=== PATIENT | male | born 1995 | race Caucasian/White ===

== ENCOUNTER 2020-07-31 12:21 | Outpatient (REF) | payer MEDICAID, SELFPAY ==
[2020-08-01 12:53] LABS: COVID-19 RT-PCR UVMMC Result Negative (Negative)
== END 2020-07-31 12:22 | disposition home or self-care (01) ==
LOC: NCHCN 12:21
PROVIDERS: PCP General Practice; Visit Provider Physician Assistant Medical
DX: Z20.822 Contact with and (suspected) exposure to COVID-19 (principal); J06.9 Acute upper respiratory infection, unspecified
CPT/HCPCS: U0003